=== PATIENT | female | born 1990 | race African-American/Black ===

== ENCOUNTER 2020-09-16 08:48 | Emergency (ER) | payer SELFPAY ==
[~2020-09-16] VITALS: Ht 172.7 cm; Wt 52.0 kg
[~2020-09-16 08:48] MED LIST: IBUP-1060 PO; OXYC1TAB15 PO
[2020-09-16 08:56] VITALS: BP 142/89
[2020-09-16] MEDS ORDERED: NEOMY/BACITR/POLYMYXIN OINT PACKET. TP ONE (09:15)
[2020-09-16] MEDS ORDERED: DIPH,PERTUSS(ACELL),TET VAC/PF 0.5 ML SYRINGE. VAX IM ONE (09:15)
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
[2020-09-16] MEDS ORDERED: ALPRAZolam 0.5 MG TABLET PO ONE (10:00)
[2020-09-16] MEDS ORDERED: IBUPROFEN 400 MG TABLET. PO ONE (10:00)
[2020-09-16] MEDS ORDERED: ORPH100T PO (10:08)
== END 2020-09-16 11:10 | disposition home or self-care (01) ==
LOC: ER 08:48
DX: S16.1XXA Strain of muscle, fascia and tendon at neck level, initial encounter (principal); S00.81XA Abrasion of other part of head, initial encounter; S00.83XA Contusion of other part of head, initial encounter; F41.9 Anxiety disorder, unspecified; R60.0 Localized edema; Y08.89XA Assault by other specified means, initial encounter; Y93.89 Activity, other specified; Y92.89 Other specified places as the place of occurrence of the external cause; Y99.8 Other external cause status
CPT/HCPCS: 70450; 70486; 72125; 81025; 99285